=== PATIENT | male | born 2005 | race Caucasian/White ===

== ENCOUNTER 2023-02-15 10:05 | Emergency (ER) | payer BC ==
[~2023-02-15] VITALS: Ht 190.5 cm; Wt 115.7 kg
--- NOTE | 2023-02-15 10:21 | ED Abdominal Pain ---
General Stated Complaint: AB PAIN Source of Information: Patient Exam Limitations: No Limitations History of Present Illness Date Seen by Provider: Feb 15, 2023 Time Seen by Provider: 10:09 Initial Comments 17-year-old male presents to the emergency department today for right upper quadrant abdominal pain. Symptoms started about 2:00 this morning and have been waxing and waning since that time. He states it feels like a hot knife stabbing him in his right upper abdomen. It does seem to go straight through into his parascapular region. No fevers chills nausea or vomiting. No changes in bowel or bladder habits. He does occasionally drink alcohol but has not drank in the last couple of weeks. He has had his appendix removed about a year to year and a half ago. All other systems reviewed and negative except documented per HPI. Voice recognition software was used to help create this chart Allergies and Home Medications Allergies Coded Allergies: No Known Drug Allergies (Unverified , 02/15/23) Patient Home Medication List Home Medication List Reviewed: Yes Review of Systems Review of Systems Constitutional: see HPI Past Oivtonw-Bozods-Jvjrre Hx Patient Social History Tobacco Use?: No Use of E-Cig and/or Vaping dev: No Substance use?: No Alcohol Use?: Yes Physical Exam Vital Signs Vital Signs - First Documented 02/15/23 10:14 Temp 36.8 Pulse 79 Resp 18 B/P (MAP) 160/100 (120) O2 Delivery Room Air Capillary Refill : Height/Weight/BMI Height: '" Weight: lbs. oz. kg; BMI Method: General Appearance: WD/WN, no apparent distress HEENT: normal ENT inspection, pharynx normal Neck: supple, normal inspection Respiratory: chest non-tender, lungs clear, normal breath sounds, no resp iratory distress, no accessory muscle use Cardiovascular: regular rate, rhythm, no murmur Gastrointestinal: normal bowel sounds, soft, tenderness (Tenderness palpation the right upper quadrant with voluntary guarding. No rebound tenderness. No mass organomegaly. No skin changes.) Extremities: normal range of motion, non-tender, normal capillary refill Neurologic/Psychiatric: alert, normal mood/affect Skin: normal color, warm/dry Progress/Results/Core Measures Results/Orders Lab Results Laboratory Tests Test 02/15/23 10:21 Range/Units White Blood Count 7.9 4.3-11.0 10^3/uL Red Blood Count 5.19 4.30-5.52 10^6/uL Hemoglobin 15.1 13.3-17.7 g/dL Hematocrit 45 40-54 % Mean Corpuscular Volume 86 80-99 fL Mean Corpuscular Hemoglobin 29 25-34 pg Mean Corpuscular Hemoglobin Concent 34 32-36 g/dL Red Cell Distribution Width 12.8 10.0-14.5 % Platelet Count 220 130-400 10^3/uL Mean Platelet Volume 10.0 9.0-12.2 fL Immature Granulocyte % (Auto) 0 % Neutrophils (%) (Auto) 63 42-75 % Lymphocytes (%) (Auto) 25 12-44 % Monocytes (%) (Auto) 10 0-12 % Eosinophils (%) (Auto) 1 0-10 % Basophils (%) (Auto) 0 0-10 % Neutrophils # (Auto) 5.0 1.8-7.8 10^3/uL Lymphocytes # (Auto) 2.0 1.0-4.0 10^3/uL Monocytes # (Auto) 0.8 0.0-1.0 10^3/uL Eosinophils # (Auto) 0.1 0.0-0.3 10^3/uL Basophils # (Auto) 0.0 0.0-0.1 10^3/uL Immature Granulocyte # (Auto) 0.0 0.0-0.1 10^3/uL Sodium Level 139 135-145 MMOL/L Potassium Level 3.9 3.6-5.0 MMOL/L Chloride Level 105 98-107 MMOL/L Carbon Dioxide Level 24 21-32 MMOL/L Anion Gap 10 5-14 MMOL/L Blood Urea Nitrogen 7 7-18 MG/DL Creatinine 0.95 0.60-1.30 MG/DL Estimat Glomerular Filtration Rate 118 BUN/Creatinine Ratio 7 Glucose Level 97 70-105 MG/DL Calcium Level 9.7 8.5-10.1 MG/DL Corrected Calcium 8.5-10.1 MG/DL Total Bilirubin 1.2 H 0.1-1.0 MG/DL Aspartate Amino Transf (AST/SGOT) 24 5-34 U/L Alanine Aminotransferase (ALT/SGPT) 24 0-55 U/L Alkaline Phosphatase 76 40-136 U/L Total Protein 7.6 6.4-8.2 GM/DL Albumin 4.7 H 3.2-4.5 GM/DL Lipase 10 8-78 U/L My Orders Orders - QI LANG DO Comprehensive Metabolic Panel (02/15/23 10:18) Lipase (02/15/23 10:18) Cbc With Automated Diff (02/15/23 10:18) Ketorolac Injection (Ketorolac Injection (02/15/23 10:30) Hydrocodone/Apap 5/325 Tablet (Hydrocod (02/15/23 11:00) Medications Given in ED Current Medications Medications Dose Ordered Sig/Meaghan Route Start Time Stop Time Status Last Admin Dose Admin Ketorolac Tromethamine 15 mg ONCE ONCE IVP 02/15/23 10:30 02/15/23 10:31 DC 02/15/23 10:29 15 MG Vital Signs/I&O 02/15/23 10:14 Temp 36.8 Pulse 79 Resp 18 B/P (MAP) 160/100 (120) O2 Delivery Room Air Departure Communication (Admissions) Patient is hemodynamically stable with a nonsurgical abdominal exam. He has significant right upper quadrant tenderness with normal liver function testing and normal lipase. His chemistry is otherwise unremarkable as well. CBC unremarkable. No indication for imaging at this time. He has had his appendix removed. I believe this is likely from his gallbladder. Order for outpatient ultrasound and discharged in stable condition. Impression Primary Impression: RUQ abdominal pain Disposition: 01 HOME, SELF-CARE Condition: Stable Departure-Patient Inst. Referrals: NO,LOCAL PHYSICIAN (PCP) Primary Care Physician JANNA SALAZAR DO Patient Instructions: Abdominal Pain, Adult ED Add. Discharge Instructions: As discussed I believe your pain might be from her gallbladder. We have scheduled you for an outpatient ultrasound. Please return in the morning at 730 and have this completed. The results will go to her general surgeon with whom you can call to schedule a follow-up appointment. Return to the emergency department for any severe concerns. Use the pain medication as prescribed as needed. This may make you drowsy so do not drive or make important decisions while taking it. This may also cause constipation so you should take a stool softener while taking it. Maintain a bland diet to keep your symptoms from flaring. QI LANG DO Feb 15, 2023 10:20
[2023-02-15 10:29] LABS: BASOPHILS % (AUTO) 0 % (0-10); EOSINOPHILS # (AUTO) 0.1 10^3/uL (0.0-0.3); EOSINOPHILS % (AUTO) 1 % (0-10); HEMATOCRIT 45 % (40-54); HEMOGLOBIN 15.1 g/dL (13.3-17.7); LYMPHOCYTES % (AUTO) 25 % (12-44); MEAN CORPUSCULAR HEMOGLOBIN 29 pg (25-34); MEAN CORPUSCULAR HGB CONC 34 g/dL (32-36); MEAN CORPUSCULAR VOLUME 86 fL (80-99); MONOCYTES # (AUTO) 0.8 10^3/uL (0.0-1.0); MONOCYTES % (AUTO) 10 % (0-12); NEUTROPHILS % (AUTO) 63 % (42-75); PLATELET COUNT 220 10^3/uL (130-400); WHITE BLOOD COUNT 7.9 10^3/uL (4.3-11.0)
[2023-02-15] MEDS ORDERED: KETOROLAC INJ 15 MG/ML VIAL IVP ONE (10:30)
[2023-02-15 10:39] LABS: ALBUMIN 4.7 GM/DL (3.2-4.5); CHLORIDE 105 MMOL/L (98-107); POTASSIUM 3.9 MMOL/L (3.6-5.0); SODIUM 139 MMOL/L (135-145)
[2023-02-15 10:41] LABS: CALCIUM 9.7 MG/DL (8.5-10.1)
[2023-02-15 10:42] LABS: GLUCOSE 97 MG/DL (70-105); TOTAL PROTEIN 7.6 GM/DL (6.4-8.2)
[2023-02-15 10:43] LABS: CARBON DIOXIDE 24 MMOL/L (21-32)
[2023-02-15 10:44] LABS: BILIRUBIN,TOTAL 1.2 MG/DL (0.1-1.0)
[2023-02-15 10:45] LABS: ALKALINE PHOSPHATASE 76 U/L (40-136); CREATININE SERUM 0.95 MG/DL (0.60-1.30); GFR ESTIMATED 118
[2023-02-15 10:47] LABS: BUN/CREATININE RATIO 7
[2023-02-15 10:48] LABS: ALANINE AMINOTRANSFERASE 24 U/L (0-55)
[2023-02-15 10:49] LABS: LIPASE 10 U/L (8-78)
[2023-02-15] MEDS ORDERED: HYDROcodone/ACETAMINOPHEN 5 MG/325 MG TABLET PO ONE (11:00)
[2023-02-15] MEDS ORDERED: ACHD5005 PO (11:02)
[2023-02-15 11:06] VITALS: BP 149/91
== END 2023-02-15 11:06 | disposition home or self-care (01) ==
LOC: ER 10:10
DX: R10.11 Right upper quadrant pain (principal); Z90.49 Acquired absence of other specified parts of digestive tract; Z28.310 Unvaccinated for COVID-19
CPT/HCPCS: 36415; 80053; 83690; 85025

== ENCOUNTER → 2023-02-16 | Outpatient (CLI) | payer BC ==
[~2023-02-16] MED LIST: ACHD5005 PO
--- NOTE | 2023-02-16 08:38 | Diagnostic Imaging Report ---
PROCEDURE: US Gallbladder. TECHNIQUE: Multiple real-time grayscale images were obtained over the right upper quadrant in various projections. INDICATION: Right upper quadrant pain. Liver is enlarged at 19.4 cm. The portal vein is patent and shows normal direction of flow. There is some generalized increased echogenicity throughout the liver consistent with hepatic steatosis. Gallbladder is without stones or sludge. There is no wall thickening or biliary duct dilatation. Pancreas unremarkable. Aorta is nonaneurysmal. IVC is patent. Right kidney is without calculi or hydronephrosis. There is no ascites. IMPRESSION: 1. Hepatomegaly and hepatic steatosis. 2. No evidence of cholelithiasis or acute cholecystitis. Dictated by: Dictated on workstation # [id number]
== END ==
LOC: RAD 07:32
PROVIDERS: ATTEND Emergency Medicine
DX: K76.0 Fatty (change of) liver, not elsewhere classified (principal); R16.0 Hepatomegaly, not elsewhere classified
CPT/HCPCS: 76705